=== PATIENT | female | born 1965 | race Caucasian/White ===

== ENCOUNTER → 2019-01-14 | Outpatient (CLI) | payer BC ==
--- NOTE | 2019-01-14 09:15 | US ---
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 1.7 X 0.9 x 0.9 cm hypoechoic calcified nodule at the upper pole with well-defined margins; . T his nodule is wider than tall and shows intranodular vascularity. Prior size: no prior 2. 1.3 X 0.7 x 1.0 cm hypoechoic solid nodule at the mid pole with well-defined margins; . This nod ule is wider than tall and shows intranodular vascularity. Prior size: no prior LEFT: # of nodules measured on left: 3 1. 0.8 X 0.5 x 0.6 cm hypoechoic solid nodule at the mid pole with well-defined margins; . This no dule is wider than tall and shows intranodular vascularity. Prior size: no prior 2. 0.9 X 0.6 x 0.9 cm isoechoic mixed nodule at the mid pole with poorly defined margins; . This no dule is wider than tall and shows intranodular vascularity. Prior size: no prior 3. 2.5 X 1.6 x 2.2 cm isoechoic mixed nodule at the lower pole with well-defined margins; . This no dule is wider than tall and shows intranodular vascularity. Prior size: no prior ISTHMUS: # of nodules measured in the isthmus: 0 Bilateral neck scanned, multiple normal appearing lymph nodes noted bilaterally Multiple thyroid nodules noted bilaterally. Largest 2 measured on the right and largest 3 on the left IMPRESSION: Findings compatible with multinodular goiter.
[2019-01-14 10:25] LABS: T4, Free (Free Thyroxine) 1.87 ng/dL (0.78-2.19)
--- NOTE | 2019-01-15 09:44 | NM ---
EXAMINATION TYPE: NM thyroid image w uptake DATE OF EXAM: 01/15/2019 COMPARISON: Thyroid ultrasound dated 01/14/2019 HISTORY: Thyrotoxicosis TECHNIQUE: Thyroid iodine uptake is calculated and images performed after the oral administration of 323 uCi 1-123 Capsule. FINDINGS: There is abnormal distribution of activity within the gland as there is marked focal activi ty of a left lower pole thyroid nodule suppressing the remainder of the thyroid gland. One correspond with the prior ultrasound of 01/14/2019, given the size of the abnormal uptake in location this likel y corresponds to the 2.5 cm thyroid nodule seen on that ultrasound exam. The 4 hour iodine uptake is calculated at 9.5% (normal range 8-14%). The 24-hour iodine uptake is calculated at 28.8% (normal ra nge 15-35%). IMPRESSION: Dominant left thyroid nodule with marked uptake likely corresponding to the 2.5 cm left t hyroid nodule on the ultrasound of 01/14/2019 and most commonly representing an autonomously functioni ng thyroid nodule suppressing the remainder the thyroid gland. The patient is noted to be euthyroid.
== END ==
LOC: RADUSMAIN 08:00
PROVIDERS: ATTEND Internal Medicine Endocrinology, Diabetes & Metabolism
DX: E05.90 Thyrotoxicosis, unspecified without thyrotoxic crisis or storm (principal)
CPT/HCPCS: 76536; 78014; 84439; 84443; 84445; 84480

== ENCOUNTER → 2019-03-09 | Outpatient (CLI) | payer BC | END | disposition home or self-care (01) | LOC: LABWHC1 12:06 | PROVIDERS: ATTEND Internal Medicine Endocrinology, Diabetes & Metabolism | DX: E05.90 Thyrotoxicosis, unspecified without thyrotoxic crisis or storm (principal) | CPT/HCPCS: 36415; 84439; 84443; 84481 ==

== ENCOUNTER → 2019-05-06 | Outpatient (CLI) | payer BC ==
[2019-05-06 19:15] LABS: T4, Free (Free Thyroxine) 0.9 ng/dL (0.80-1.80)
== END | disposition home or self-care (01) ==
LOC: LABWHC1 12:28
PROVIDERS: ATTEND Internal Medicine Endocrinology, Diabetes & Metabolism
DX: E05.90 Thyrotoxicosis, unspecified without thyrotoxic crisis or storm (principal)
CPT/HCPCS: 36415; 84439; 84443; 84480

== ENCOUNTER 2019-05-18 12:17 | Day surgery (SDC) | payer BC ==
[2019-05-18 13:39] VITALS: RESP 16; TEMP 98.1
[2019-05-18 14:11] VITALS: BP 148/79; PULSE 69
--- NOTE | 2019-05-18 16:29 | US ---
EXAMINATION TYPE: US FNA thyroid each add lesion, US FNA thyroid first lesion DATE OF EXAM: 05/18/2019 COMPARISON: Ultrasound thyroid 01/14/2019 and nuclear medicine thyroid scan 01/14/2019 HISTORY: Thyroid nodule, E04.1 Maximal barrier technique was utilized. Ultrasound using sterile technique. The skin overlying the ri ght-sided thyroid nodule was localized with ultrasound and the overlying skin prepped and draped. Lid ocaine used for local anesthesia. 5 passes with a 25-gauge needle were made into the nodule under ult rasound guidance. Using similar technique the left-sided thyroid nodule was aspirated. 5 passes with 25-gauge needle were made under direct ultrasound guidance. Aspirated specimens submitted to cytology . Following the procedure hemostasis achieved. No immediate complication IMPRESSION: Status post ultrasound-guided fine-needle aspiration of bilateral thyroid nodules, pathol ogy pending.
== END 2019-05-18 14:00 | disposition home or self-care (01) ==
LOC: RADPROMAIN 12:17
PROVIDERS: ATTEND Internal Medicine Endocrinology, Diabetes & Metabolism
DX: E04.2 Nontoxic multinodular goiter (principal)
CPT/HCPCS: 10005; 10006; 88173; 88305

== ENCOUNTER → 2019-06-02 | Outpatient (CLI) | payer BC ==
--- NOTE | 2019-06-02 13:53 | XR ---
EXAMINATION TYPE: XR chest 2V, XR ribs RT DATE OF EXAM: 06/02/2019 COMPARISON: NONE HISTORY: Intermittent shortness of breath and right rib pain. TECHNIQUE: Frontal and lateral views of the chest are obtained. Frontal and oblique views of the rig ht ribs were obtained. FINDINGS: There is no focal air space opacity, pleural effusion, or pneumothorax seen. The cardiac silhouette size is within normal limits. The osseous structures are grossly intact. No healed right rib fracture or displaced acute fracture is seen. Cholecystectomy clips are seen in the right upper quadrant. IMPRESSION: No acute cardiopulmonary process. No acute displaced right rib fracture or healed right rib fracture deformity is seen.
== END | disposition home or self-care (01) ==
LOC: RADXRYALE 13:02
PROVIDERS: ATTEND Internal Medicine
DX: R06.02 Shortness of breath (principal); M54.9 Dorsalgia, unspecified
CPT/HCPCS: 71046

== ENCOUNTER 2023-04-03 11:29 | Emergency (ER) | payer BC ==
[2023-04-03 11:38] VITALS: TEMP 97.9
[2023-04-03] MEDS ORDERED: diphenhydrAMINE 50 MG/ML 1 ML VIAL IVP STA (12:14)
[2023-04-03] MEDS ORDERED: METOCLOPRAMIDE 5 MG/ML 2 ML VIAL IVP STA (12:14)
[2023-04-03] MEDS ORDERED: SODIUM CHLORIDE 0.9% 2,000 ML IV STA (12:14)
[2023-04-03] MEDS ORDERED: FAMOTIDINE 20 MG/2 ML VIAL IV STA (12:15)
[2023-04-03 12:53] LABS: Basophils % (A) 0 %; Eosinophils # (A) 0.1 k/uL (0-0.7); Eosinophils % (A) 1 %; HCT 46.8 % (34.0-46.0); HGB 15.7 gm/dL (11.4-16.0); Lymphocytes # (A) 0.9 k/uL (1.0-4.8); Lymphocytes % (A) 12 %; MCHC 33.6 g/dL (31.0-37.0); MCV 86.4 fL (80.0-100.0); Mean Platelet Volume 8.4; Monocytes # (A) 0.3 k/uL (0-1.0); Monocytes % (A) 4 %; Neutrophils # (A) 6.2 k/uL (1.3-7.7); Neutrophils % (A) 82 %; Platelet Count 311 k/uL (150-450); RBC 5.42 m/uL (3.80-5.40); RDW 13.2 % (11.5-15.5); WBC 7.5 k/uL (3.8-10.6)
[2023-04-03 13:02] LABS: ALT 16 U/L (4-34); AST 24 U/L (14-36); African American GFR (CKD) >90 (>60 ml/min/1.73 sqM); Albumin 4.3 g/dL (3.5-5.0); Alkaline Phosphatase 106 U/L (38-126); Anion Gap 12 mmol/L; Blood Urea Nitrogen 11 mg/dL (7-17); Calcium 9.7 mg/dL (8.4-10.2); Carbon Dioxide 20 mmol/L (22-30); Chloride 107 mmol/L (98-107); Glucose 104 mg/dL (74-99); Lipase 149 U/L (23-300); Magnesium 1.8 mg/dL (1.6-2.3); Non-African American GFR(CKD) 85 (>60 ml/min/1.73 sqM); Potassium 3.8 mmol/L (3.5-5.1); Sodium 139 mmol/L (137-145); Total Bilirubin 0.6 mg/dL (0.2-1.3); Total Protein 7.4 g/dL (6.3-8.2)
[2023-04-03] MEDS ORDERED: ONDANSETRON 4 MG/2 ML VIAL IVP STA (13:18)
[2023-04-03 13:54] VITALS: BP 153/98; PULSE 96; RESP 18
[2023-04-03 14:10] LABS: Appearance,Urine Turbid (Clear); Bacteria,Urine Few /hpf; Bilirubin,Urine Negative (Negative); Blood,Urine Small (Negative); Color,Urine Light Red; Glucose,Urine (UA) Negative (Negative); Ketones,Urine 1+ (Negative); Leukocyte Esterase,Urine Large (Negative); Mucus,Urine Few /hpf; Nitrite,Urine Negative (Negative); Protein,Urine 1+ (Negative); RBC,Urine 33 /hpf (0-5); Specific Gravity,Urine 1.025 (1.001-1.035); Squamous Epithelial Cell,Urine 65 /hpf (0-4); Urobilinogen,Urine <2.0 mg/dL (<2.0); WBC,Urine >182 /hpf (0-5)
[2023-04-03] MEDS ORDERED: ACET/COD 300 MG/30 MG STARTER PACK 6 TAB BTL PO STA (14:26)
--- NOTE | 2023-04-03 14:26 | ED ---
Abdominal Pain HPI - General Chief Complaint: Abdominal Pain Stated Complaint: vomiting Time Seen by Provider: 04/03/23 11:41 Source: patient, RN notes reviewed Mode of arrival: ambulatory Limitations: no limitations - History of Present Illness Initial Comments: 57-year-old female presents emergency department to complaint of abdominal skull, nausea vomiting. Patient states this started after her injection of Wegovy. Patient states she was on a low-dose and states that she they could not obtain this from the pharmacy though they had upper dose and states that she had not had for a few weeks she states proximal one hour after her injection she st arted having increased nausea vomiting states has not stopped. She states she feels very dehydrated states that she cannot tolerate vomiting anymore. Patient denies any other associated symptoms. - Related Data Home Medications Medication Instructions Recorded Confirmed Naproxen 500 mg PO BID PRN 02/04/14 04/03/23 Aspirin EC [Ecotrin Low Dose] 81 mg PO DAILY 04/03/23 04/03/23 Cetirizine HCl [Zyrtec] 10 mg PO DAILY 04/03/23 04/03/23 Cyanocobalamin (Vitamin B-12) 1,000 mcg PO DAILY 04/03/23 04/03/23 [Vitamin B-12] Tofacitinib Citrate [Xeljanz Xr] 11 mg PO DAILY 04/03/23 04/03/23 Vitamin D3/Vitamin K2 (Mk4) 1 tab PO DAILY 04/03/23 04/03/23 [Vitamin K2 Plus D3 Tablet] methIMAzole 10 mg PO DAILY 04/03/23 04/03/23 sulfaSALAzine [Azulfidine] 1,000 mg PO DAILY 04/03/23 04/03/23 Previous Rx's Medication Instructions Recorded Cephalexin [Keflex] 500 mg PO Q8HR #30 cap 04/03/23 Ondansetron Odt [Zofran Odt] 4 mg PO Q8HR PRN #10 tab 04/03/23 Allergies Allergy/AdvReac Type Severity Reaction Status Date / Time No Known Allergies Allergy Verified 04/03/23 13:10 Review of Systems ROS Statement: Those systems with pertinent positive or pertinent negative responses have been documented in the HPI. ROS Other: All systems not noted in ROS Statement are negative. Past Medical History Past Medical History: Osteoarthritis (OA), Rheumatoid Arthritis (RA), Thyroid Disorder Additional Past Medical History / Comment(s): INTERSTITIAL CYSTITIS History of Any Multi-Drug Resistant Organisms: None Reported Past Surgical History: Cholecystectomy, Tonsillectomy Additional Past Surgical History / Comment(s): D&C mar 2019, rt rotator cuff surgery 2015 Past Anesthesia/Blood Transfusion Reactions: Motion Sickness, Postoperative Nausea & Vomiting (PONV) Past Psychological History: No Psychological Hx Reported Smoking Status: Vaper Past Alcohol Use History: Rare Past Drug Use History: None Reported - Past Family History Father Family Medical History: Cancer Additional Family Medical History / Comment(s): LUNG Sister(s) Family Medical History: Cancer Additional Family Medical History / Comment(s): BREAST. General Exam Limitations: no limitations General appearance: alert, in no apparent distress Head exam: Present: atraumatic, normocephalic, normal inspection Eye exam: Present: normal appearance, PERRL, EOMI. Absent: scleral icterus, conjunctival injection, periorbital swelling ENT exam: Present: normal exam, normal oropharynx, mucous membranes moist Neck exam: Present: normal inspection, full ROM. Absent: tenderness, meni ngismus, lymphadenopathy Respiratory exam: Present: normal lung sounds bilaterally. Absent: respiratory distress, wheezes, rales, rhonchi, stridor Cardiovascular Exam: Present: regular rate, normal rhythm, normal heart sounds. Absent: systolic murmur, diastolic murmur, rubs, gallop, clicks GI/Abdominal exam: Present: soft, tenderness, normal bowel sounds. Absent: distended, guarding, rebound, rigid Course Vital Signs 04/03/23 04/03/23 11:30 13:48 Temperature 97.9 F Pulse Rate 90 96 Respiratory 24 18 Rate Blood Pressure 142/84 153/98 O2 Sat by Pulse 97 97 Oximetry Medical Decision Making - Medical Decision Making Was pt. sent in by a medical professional or institution (, PA, BOTTOM SPRAYER, urgent care, hospital, or fci...) When possible be specific @ -No Did you speak to anyone other than the patient for history (EMS, parent, family, police, friend...)? What history was obtained from this source @ -No Did you review nursing and triage notes (agree or disagree)? Why? @ -I reviewed and agree with nursing and triage notes Were old charts reviewed (outside hosp., previous admission, EMS record, old EKG, old radiological studies, urgent care reports/EKG's, fci records)? Report findings @ -No old charts were reviewed Differential Diagnosis (chest pain, altered mental status, abdominal pain women, abdominal pain men, vaginal bleeding, weakness, fever, dyspnea, syncope, headache, dizziness, GI bleed, back pain, seizure, CVA, palpatations, mental health, musculoskeletal)? @ -nDifferential Abdominal Pain Women: Appendicitis, Cholecystitis, diverticulosis, ischemic bowel, pancreatitis, hepat itis, UTI, gastroenteritis, AAA, incarcerated hernia, bowel obstruction, constipation, inflammatory bowel, hepatitis, peptic ulcer disease, splenic infarction, perforated viscus, vulvitis, ovarian torsion, PID, kidney stone, placenta abruption, this is not meant to be an all-inclusive listable EKG interpreted by me (3pts min.). @ -None X-rays interpreted by me (1pt min.). @ -None done CT interpreted by me (1pt min.). @ -None done U/S interpreted by me (1pt. min.). @ -None done What testing was considered but not performed or refused? (CT, X-rays, U/S, labs)? Why? @ -None What meds were considered but not given or refused? Why? @ -None Did you discuss the management of the patient with other professionals (professionals i.e. , PA, BOTTOM SPRAYER, lab, RT, psych nurse, dialysis social worker, fixed income manager, teacher, chief credit officer, case management associate)? Give summary @ -No Was smoking cessation discussed for >3mins.? @ -No Was critical care preformed (if so, how long)? @ -No Were there social determinants of health that impacted care today? How? (Homelessness, low income, unemployed, alcoholism, drug addiction, transportation, low edu. Level, literacy, decrease access to med. care, [facility], rehab)? @ -No Was there de-escalation of care discussed even if they declined (Discuss DNR or withdrawal of care, Hospice)? DNR status @ -No What co-morbidities impacted this encounter? (DM, HTN, Smoking, COPD, CAD, Cancer, CVA, ARF, Chemo, Hep., AIDS, mental health diagnosis, sleep apnea, m orbid obesity)? @ -None Was patient admitted / discharged? Hospital course, mention meds given and route, prescriptions, significant lab abnormalities, going to OR and other pertinent info. @ -Discharge patient felt greatly improved after IV fluids and antiemetics and further studies unremarkable urinalysis was. Patient was discharged on Keflex, Zofran return parameters discussed. Undiagnosed new problem with uncertain prognosis? @ -No Drug Therapy requiring intensive monitoring for toxicity (Heparin, Nitro, Insulin, Cardizem)? @ -No Were any procedures done? @ -No Diagnosis/symptom? @ -Nausea vomiting, dehydration, UTI Acute, or Chronic, or Acute on Chronic? @ -Acute Uncomplicated (without systemic symptoms) or Complicated (systemic symptoms)? @ -Complicated Side effects of treatment? @ -No Exacerbation, Progression, or Severe Exacerbation? @ -No Poses a threat to life or bodily function? How? (Chest pain, [place], [place], pneumonia, PE, COPD, DKA, ARF, appy, cholecystitis, CVA, Diverticulitis, Homicidal, Suic idal, threat to staff... and all critical care pts) @ -No - Lab Data Result diagrams: 04/03/23 12:19 04/03/23 12:19 Lab Results 04/03/23 04/03/23 04/03/23 Range/Units 12:19 12:19 13:54 WBC 7.5 (3.8-10.6) k/uL RBC 5.42 H (3.80-5.40) m/uL Hgb 15.7 (11.4-16.0) gm/dL Hct 46.8 H (34.0-46.0) % MCV 86.4 (80.0-100.0) fL MCH 29.0 (25.0-35.0) pg MCHC 33.6 (31.0-37.0) g/dL RDW 13.2 (11.5-15.5) % Plt Count 311 (150-450) k/uL MPV 8.4 Neutrophils % 82 % Lymphocytes % 12 % Monocytes % 4 % Eosinophils % 1 % Basophils % 0 % Neutrophils # 6.2 (1.3-7.7) k/uL Lymphocytes # 0.9 L (1.0-4.8) k/uL Monocytes # 0.3 (0-1.0) k/uL Eosinophils # 0.1 (0-0.7) k/uL Basophils # 0.0 (0-0.2) k/uL Sodium 139 (137-145) mmol/L Potassium 3.8 (3.5-5.1) mmol/L Chloride 107 (98-107) mmol/L Carbon Dioxide 20 L (22-30) mmol/L Anion Gap 12 mmol/L BUN 11 (7-17) mg/dL Creatinine 0.78 (0.52-1.04) mg/dL Est GFR (CKD-EPI)AfAm >90 (>60 ml/min/1.73 sqM) Est GFR (CKD-EPI)NonAf 85 (>60 ml/min/1.73 sqM) Glucose 104 H (74-99) mg/dL Calcium 9.7 (8.4-10.2) mg/dL Magnesium 1.8 (1.6-2.3) mg/dL Total Bilirubin 0.6 (0.2-1.3) mg/dL AST 24 (14-36) U/L ALT 16 (4-34) U/L Alkaline Phosphatase 106 (38-126) U/L Total Protein 7.4 (6.3-8.2) g/dL Albumin 4.3 (3.5-5.0) g/dL Lipase 149 (23-300) U/L Urine Color Light Red Urine Appearance Turbid H (Clear) Urine pH 7.0 (5.0-8.0) Ur Specific [place] 1.025 (1.001-1.035) Urine Protein 1+ H (Negative) Urine Glucose (UA) Negative (Negative) Urine Ketones 1+ H (Negative) Urine Blood Small H (Negative) Urine Nitrite Negative (Negative) Urine Bilirubin Negative (Negative) Urine Urobilinogen <2.0 (<2.0) mg/dL Ur Leukocyte Esterase Large H (Negative) Urine RBC 33 H (0-5) /hpf Urine WBC >182 H (0-5) /hpf Ur Squamous Epith Cells 65 H (0-4) /hpf Urine Bacteria Few H (None) /hpf Urine Mucus Few H (None) /hpf Disposition Clinical Impression: UTI (urinary tract infection), Nausea & vomiting Disposition: HOME SELF-CARE Condition: Stable Instructions (If sedation given, give patient instructions): Urinary Tract Infection in Women (ED) Additional Instructions: Please return to the Emergency Department if symptoms worsen or any other concerns. Prescriptions: Cephalexin [Keflex] 500 mg PO Q8HR #30 cap Ondansetron Odt [Zofran Odt] 4 mg PO Q8HR PRN #10 tab PRN Reason: Nausea Is patient prescribed a controlled substance at d/c from ED?: No Referrals: Talya Schwartz MD [Primary Care Provider] - 1-2 days Time of Disposition: 14:26
== END 2023-04-03 14:48 | disposition home or self-care (01) ==
LOC: EC 11:29
DX: N39.0 Urinary tract infection, site not specified (principal); E86.0 Dehydration; M06.9 Rheumatoid arthritis, unspecified; E07.9 Disorder of thyroid, unspecified; F17.290 Nicotine dependence, other tobacco product, uncomplicated; Z90.49 Acquired absence of other specified parts of digestive tract; Z79.890 Hormone replacement therapy; Z79.82 Long term (current) use of aspirin; Z79.899 Other long term (current) drug therapy
CPT/HCPCS: 36415; 80053; 83690; 83735; 85025; 81001; 99284; 96374; 96375 ×3; 96361 ×2; J1200; J2765; J2405; 87086